=== PATIENT | male | born 1955 | race Caucasian/White ===

== ENCOUNTER 2018-01-08 22:21 | Emergency (ER) | payer OTHER ==
[~2018-01-08] VITALS: Ht 177.8 cm; Wt 93.3 kg
[2018-01-08 22:27] VITALS: TEMP 36.5; Ht 177.8 cm; Wt 93.3 kg
[2018-01-08] MEDS ORDERED: HYDROmorphone INJ 1 MG/ML SYR IV STA ×2 (22:39→23:47)
[2018-01-08] MEDS ORDERED: ONDANSETRON INJ 2 MG/ML 2 ML VIAL IV STA (22:39)
[2018-01-08] MEDS ORDERED: SODIUM CHLORIDE 0.9% 1000ML 1,000 ML IV ONE (22:45)
[2018-01-08] MEDS ORDERED: OPTIRAY 320 IV PRN (23:00)
[2018-01-08 23:07] LABS: BASO % 0.4 %; BASO ABS # 0.04 K/uL (0-0.2); EOS % 0.2 %; EOS ABS # 0.02 K/uL (0-0.5); HEMATOCRIT 43.9 % (42-52); HEMOGLOBIN 15.1 g/dL (14.0-18.0); IG# 0.03 K/uL (0.00-0.02); LYMPH % 14.4 %; LYMPH ABS # 1.53 K/uL (1.2-3.4); MEAN CELL VOLUME 90.5 fL (80-100); MEAN CORPUSCULAR HEMOGLOBIN 31.1 pg (25-34); MEAN CORPUSCULAR HGB CONC 34.4 g/dl (32-36); MEAN PLATELET VOLUME 9.8 fL (7.4-10.4); MONO % 7.5 %; NEUT % 77.2 %; PLATELET COUNT 203 K/uL (130-400); RED CELL DISTRIBUTION WIDTH CV 13.2 % (11.5-14.5); RED CELL DISTRIBUTION WIDTH SD 43.3 fL (36.4-46.3); WHITE BLOOD COUNT 10.62 K/uL (4.8-10.8)
[2018-01-08] MEDS ORDERED: PATIENT'S ALLERGY INFO NEEDS ENTERED STA (23:16)
[2018-01-08 23:28] LABS: ALBUMIN 3.6 gm/dl (3.4-5.0); CALCIUM 8.6 mg/dl (8.5-10.1); CREATININE 1.27 mg/dl (0.60-1.40); TOTAL PROTEIN 7.5 gm/dl (6.4-8.2)
[2018-01-09] MEDS ORDERED: ASPI81TA28 PO ×2 (00:01)
[2018-01-09] MEDS ORDERED: MULT-506 PO ×2 (00:01)
[2018-01-09] MEDS ORDERED: KETOROLAC TROMETHAMINE 30 MG/ML VIAL IV STA (02:14)
[2018-01-09] MEDS ORDERED: ONDA4TAB10 SL ×2 (02:33)
[2018-01-09] MEDS ORDERED: OXYC1TAB3 PO ×2 (02:33)
[2018-01-09] MEDS ORDERED: TAMS0.4C38 PO ×2 (02:33)
[2018-01-09 02:34] VITALS: BP 141/64; PULSE 65; O2SAT 98
[2018-01-09] MEDS ORDERED: OXYCODONE IR HOME PACK PO ONE (02:45)
[2018-01-09] MEDS ORDERED: ONDANSETRON HOME PACK 4MG OD TAB PO ONE (02:45)
--- NOTE | 2018-01-09 08:26 | DIAGNOSTIC IMAGING REPORT ---
CT SCAN OF THE ABDOMEN AND PELVIS WITH IV CONTRAST CLINICAL HISTORY: Left lower quadrant abdominal pain. COMPARISON STUDY: Abdominal radiograph dated 01/08/2018. TECHNIQUE: Following the IV administration of 95 cc of Optiray 320, CT scan of the abdomen and pelvis is performed from the lung bases to the proximal femora. Images are reviewed in the axial, sagittal, and coronal planes. IV contrast was administered without complication. A dose lowering technique was utilized adhering to the principles of ALARA. CT DOSE: 673.92 mGy.cm FINDINGS: Lung bases: The heart is top normal in size and without pericardial effusion. There is minimal linear left lower lobe pulmonary nodule seen image #61. The long bases are otherwise clear noting dependent atelectasis. There is a tiny fat-containing umbilical hernia. Liver: The contrast-enhanced liver is normal in size, contour, and attenuation. There is no intrahepatic biliary ductal dilatation. The hepatic veins and portal veins are patent. Gallbladder: There are small calcified gallstones. There is no CT evidence of acute cholecystitis. Spleen: Normal in size and attenuation. Pancreas: Unremarkable. Adrenal glands: Unremarkable. Kidneys: The contrast enhanced kidneys are normal in size. There is a 10 mm obstructing calculus in the left proximal ureter just below the vesicoureteral junction seen on image #218a. This is seen at the level of L2-L3 and causes moderate left hydroureteronephrosis. There is heterogeneously diminished perfusion of the left kidney as compared to the right, likely related to obstruction. There is associated left-sided perinephric stranding. The right kidney enhances homogeneously. Additional tiny nonobstructing calculi are present in both kidneys. There is no right-sided hydronephrosis. Bilateral renal cysts measure up to 4.3 cm. A 2.4 cm hypodensity in the interpolar left kidney on image #[address] criteria for simple cyst. Abdominal vasculature: The abdominal aorta is normal in course and caliber noting mild to moderate atherosclerotic calcification. Bowel: There is mild colonic diverticulosis without CT evidence of acute diverticulitis. Colonic fecal retention is observed. No bowel obstruction is seen. The appendix is is well-visualized and normal. Peritoneum: There is no intraperitoneal free air or abdominal ascites. There is a small fat-containing umbilical hernia. Lymphadenopathy: None. Pelvic viscera: The bladder, prostate, and seminal vesicles are normal as imaged. Skeletal structures: There are bilateral pars defects at L5. There is minimal anterolisthesis and advanced disc space narrowing at L5-S1. No lytic or blastic lesions are seen. IMPRESSION: 1. There is a 10 mm obstructing calculus in the proximal left ureter. This causes moderate left hydroureteronephrosis. 2. Additional small nonobstructing calculi are seen bilaterally. 3. There is heterogeneously diminished perfusion of the left kidney as compared to the right. This is likely related to obstruction. Correlate clinically and with urinalysis for evidence of superimposed infection. 4. There is an 8 mm left lower lobe pulmonary nodule. This is pathologically indeterminant and follow-up with a dedicated chest CT is recommended for further assessment of the thorax. 5. Cholelithiasis. 6. Mild colonic diverticulosis without CT evidence of acute diverticulitis. 7. There are bilateral renal cysts. A 2.4 cm lesion in the interpolar left kidney does not meet CT criteria for simple cyst. This likely represents a complex cyst. Precautionary 6 month follow-up with a renal protocol CT or contrast-enhanced MRI is recommended for reassessment. 8. Additional findings as above. Electronically signed by: Benji Garcia M.D. 01/09/2018 8:24 AM Dictated Date/Time: 01/09/2018 8:15 AM
--- NOTE | 2018-01-09 08:27 | DIAGNOSTIC IMAGING REPORT ---
CHEST AND ABDOMEN 2 VIEWS HISTORY: Left lower quadrant abdominal pain. COMPARISON: None. FINDINGS: The lungs are clear. The heart is normal in size. No pleural effusions. No pneumothorax. Moderate to large amount well-formed stool seen throughout the colon. No evidence for bowel obstruction. There is a 7 mm stone at the left ureteropelvic junction. Multiple pelvic phleboliths. There is a punctate stone within the lower pole the right kidney. IMPRESSION: 1. A 7 mm left ureteropelvic junction stone. 2. Right-sided nephrolithiasis. Electronically signed by: Eder Rodriguez M.D. 01/09/2018 8:26 AM Dictated Date/Time: 01/09/2018 8:22 AM
--- NOTE | 2018-01-10 02:51 | EMERGENCY ROOM VISIT NOTE ---
History First contact with patient: 22:33 Chief Complaint: ABDOMINAL PAIN Stated Complaint: LLQ PAIN,NAUSEA Nursing Triage Summary: pt reports started with abdominal pain approx 1600 today , + nausea History of Present Illness The patient is a 62 year old male who presents to the Emergency Room with complaints of left lower quadrant abdominal pain that began worsening about 6-1/ 2 hours ago. The patient states that he was doing yard work at the time and thought his symptoms might be musculoskeletal in nature. He stopped what he was doing and his pain continued. He states the pain is a dull and constant 7/ 10. He does have associated nausea without vomiting. He is not having fevers, chills, chest pain, chest tightness, or shortness of breath. No upper abdominal discomfort. He considers himself usually healthy and does not take medication on a regular basis. He has had colonoscopy in the past and states that he had a singular polyp as well as scattered diverticula on colonoscopy. The patient has never had abdominal surgery. He has not taken anything over-the -counter for his discomfort. Review of Systems More than 10 systems were reviewed and otherwise negative with the exception of history of present illness. Past Medical/Surgical History No chronic medical disease Family History No pertinent family history Social History Smoking Status: Never Smoker Housing Status: lives with family Occupation Status: employed Current/Historical Medications Scheduled Aspirin (Aspirin Ec), 81 MG PO DAILY Multivitamin (Multivitamin), 1 TAB PO DAILY Ondasetron Odt (Zofran Odt), 4 MG SL Q6H Oxycodone Immediate Rel Tab (Roxicodone Ir), 1-2 TAB PO Q4H Tamsulosin Hcl (Flomax), 0.4 MG PO DAILY Physical Exam Vital Signs Date Time Temp Pulse Resp B/P (MAP) Pulse Ox O2 Delivery O2 Flow Rate FiO2 01/09/18 02:34 65 20 141/64 98 Room Air 01/09/18 01:25 74 20 116/68 98 Room Air 01/08/18 23:56 77 18 111/65 96 Room Air 01/08/18 22:27 36.5 70 18 119/70 96 Room Air Physical Exam VITALS: Vitals are noted on the nurse's note and reviewed by myself. Vital signs stable. GENERAL: Well-developed, well-nourished, white male who appears mildly uncomfortable on examination. HEART: Regular rate and rhythm without murmurs gallops or rubs. LUNGS: Clear to auscultation bilaterally without wheezes, rales or rhonchi. No retractions or accessory muscle use. ABDOMEN: Positive normal bowel sounds x 4. Soft, nontender, without masses or organomegaly. No guarding or rebound tenderness. No CVA tenderness. MUSCULOSKELETAL: No muscle atrophy, erythema, or edema noted. Full range of motion in all extremities. No tenderness to palpation. Medical Decision & Procedures ER Provider Diagnostic Interpretation: CHEST AND ABDOMEN 2 VIEWS HISTORY: Left lower quadrant abdominal pain. COMPARISON: None. FINDINGS: The lungs are clear. The heart is normal in size. No pleural effusions. No pneumothorax. Moderate to large amount well-formed stool seen throughout the colon. No evidence for bowel obstruction. There is a 7 mm stone at the left ureteropelvic junction. Multiple pelvic phleboliths. There is a punctate stone within the lower pole the right kidney. IMPRESSION: 1. A 7 mm left ureteropelvic junction stone. 2. Right-sided nephrolithiasis. CT SCAN OF THE ABDOMEN AND PELVIS WITH IV CONTRAST CLINICAL HISTORY: Left lower quadrant abdominal pain. COMPARISON STUDY: Abdominal radiograph dated 01/08/2018. TECHNIQUE: Following the IV administration of 95 cc of Optiray 320, CT scan of the abdomen and pelvis is performed from the lung bases to the proximal femora. Images are reviewed in the axial, sagittal, and coronal planes. IV contrast was administered without complication. A dose lowering technique was utilized adhering to the principles of ALARA. CT DOSE: 673.92 mGy.cm FINDINGS: Lung bases: The heart is top normal in size and without pericardial effusion. There is minimal linear left lower lobe pulmonary nodule seen image #61. The long bases are otherwise clear noting dependent atelectasis. There is a tiny fat-containing umbilical hernia. Liver: The contrast-enhanced liver is normal in size, contour, and attenuation. There is no intrahepatic biliary ductal dilatation. The hepatic veins and portal veins are patent. Gallbladder: There are small calcified gallstones. There is no CT evidence of acute cholecystitis. Spleen: Normal in size and attenuation. Pancreas: Unremarkable. Adrenal glands: Unremarkable. Kidneys: The contrast enhanced kidneys are normal in size. There is a 10 mm obstructing calculus in the left proximal ureter just below the vesicoureteral junction seen on image #218a. This is seen at the level of L2-L3 and causes moderate left hydroureteronephrosis. There is heterogeneously diminished perfusion of the left kidney as compared to the right, likely related to obstruction. There is associated left-sided perinephric stranding. The right kidney enhances homogeneously. Additional tiny nonobstructing calculi are present in both kidneys. There is no right-sided hydronephrosis. Bilateral renal cysts measure up to 4.3 cm. A 2.4 cm hypodensity in the interpolar left kidney on image #[address] criteria for simple cyst. Abdominal vasculature: The abdominal aorta is normal in course and caliber noting mild to moderate atherosclerotic calcification. Bowel: There is mild colonic diverticulosis without CT evidence of acute diverticulitis. Colonic fecal retention is observed. No bowel obstruction is seen. The appendix is is well-visualized and normal. Peritoneum: There is no intraperitoneal free air or abdominal ascites. There is a small fat-containing umbilical hernia. Lymphadenopathy: None. Pelvic viscera: The bladder, prostate, and seminal vesicles are normal as imaged. Skeletal structures: There are bilateral pars defects at L5. There is minimal anterolisthesis and advanced disc space narrowing at L5-S1. No lytic or blastic lesions are seen. IMPRESSION: 1. There is a 10 mm obstructing calculus in the proximal left ureter. This causes moderate left hydroureteronephrosis. 2. Additional small nonobstructing calculi are seen bilaterally. 3. There is heterogeneously diminished perfusion of the left kidney as compared to the right. This is likely related to obstruction. Correlate clinically and with urinalysis for evidence of superimposed infection. 4. There is an 8 mm left lower lobe pulmonary nodule. This is pathologically indeterminant and follow-up with a dedicated chest CT is recommended for further assessment of the thorax. 5. Cholelithiasis. 6. Mild colonic diverticulosis without CT evidence of acute diverticulitis. 7. There are bilateral renal cysts. A 2.4 cm lesion in the interpolar left kidney does not meet CT criteria for simple cyst. This likely represents a complex cyst. Precautionary 6 month follow-up with a renal protocol CT or contrast-enhanced MRI is recommended for reassessment. 8. Additional findings as above. Laboratory Results 01/08/18 22:52 Red Blood Count 4.85, Mean Corpuscular Volume 90.5, Mean Corpuscular Hemoglobin 31.1, Mean Corpuscular Hemoglobin Concent 34.4, Mean Platelet Volume 9.8, Neutrophils (%) (Auto) 77.2, Lymphocytes (%) (Auto) 14.4, Monocytes (%) (Auto) 7.5, Eosinophils (%) (Auto) 0.2, Basophils (%) (Auto) 0.4, Neutrophils # (Auto) 8.20, Lymphocytes # (Auto) 1.53, Monocytes # (Auto) 0.80, Eosinophils # (Auto) 0.02, Basophils # (Auto) 0.04 01/08/18 22:52 Test 01/08/18 22:52 01/08/18 22:58 White Blood Count 10.62 K/uL (4.8-10.8) Red Blood Count 4.85 M/uL (4.7-6.1) Hemoglobin 15.1 g/dL (14.0-18.0) Hematocrit 43.9 % (42-52) Mean Corpuscular Volume 90.5 fL (80-100) Mean Corpuscular Hemoglobin 31.1 pg (25-34) Mean Corpuscular Hemoglobin Concent 34.4 g/dl (32-36) Platelet Count 203 K/uL (130-400) Mean Platelet Volume 9.8 fL (7.4-10.4) Neutrophils (%) (Auto) 77.2 % Lymphocytes (%) (Auto) 14.4 % Monocytes (%) (Auto) 7.5 % Eosinophils (%) (Auto) 0.2 % Basophils (%) (Auto) 0.4 % Neutrophils # (Auto) 8.20 K/uL (1.4-6.5) Lymphocytes # (Auto) 1.53 K/uL (1.2-3.4) Monocytes # (Auto) 0.80 K/uL (0.11-0.59) Eosinophils # (Auto) 0.02 K/uL (0-0.5) Basophils # (Auto) 0.04 K/uL (0-0.2) RDW Standard Deviation 43.3 fL (36.4-46.3) RDW Coefficient of Variation 13.2 % (11.5-14.5) Immature Granulocyte % (Auto) 0.3 % Immature Granulocyte # (Auto) 0.03 K/uL (0.00-0.02) Urine Color YELLOW Urine Appearance CLEAR (CLEAR) Urine pH 5.0 (4.5-7.5) Urine Specific [place] 1.026 (1.000-1.030) Urine Protein NEG (NEG) Urine Glucose (UA) NEG (NEG) Urine Ketones TRACE (NEG) Urine Occult Blood 2+ (NEG) Urine Nitrite NEG (NEG) Urine Bilirubin NEG (NEG) Urine Urobilinogen NEG (NEG) Urine Leukocyte Esterase NEG (NEG) Urine WBC (Auto) 1-5 /hpf (0-5) Urine RBC (Auto) >30 /hpf (0-4) Urine Hyaline Casts (Auto) 1-5 /lpf (0-5) Urine Epithelial Cells (Auto) 0-5 /lpf (0-5) Urine Bacteria (Auto) NEG (NEG) Anion Gap 7.0 mmol/L (3-11) Est Creatinine Clear Calc Drug Dose 69.2 ml/min Estimated GFR () 69.7 Estimated GFR (Non- 60.2 BUN/Creatinine Ratio 16.7 (10-20) Calcium Level 8.6 mg/dl (8.5-10.1) Total Bilirubin 1.1 mg/dl (0.2-1) Aspartate Amino Transf (AST/SGOT) 16 U/L (15-37) Alanine Aminotransferase (ALT/SGPT) 23 U/L (12-78) Alkaline Phosphatase 68 U/L (45-117) Total Protein 7.5 gm/dl (6.4-8.2) Albumin 3.6 gm/dl (3.4-5.0) Globulin 3.9 gm/dl (2.5-4.0) Albumin/Globulin Ratio 0.9 (0.9-2) Lipase 101 U/L (73-393) Bedside Lactic Acid Venous 1.55 mmol/L (0.90-1.70) Medications Administered Medications (Trade) Dose Ordered Sig/Jimena Route Start Time Stop Time Status Last Admin Dose Admin Sodium Chloride 1,000 ml @ 999 mls/hr Q1H1M ONCE IV 01/08/18 22:45 01/08/18 23:45 DC 01/08/18 23:06 999 MLS/HR Ondansetron HCl (Zofran Inj) 4 mg NOW STAT IV 01/08/18 22:39 5/20/18 22:42 DC 01/08/18 23:05 4 MG Hydromorphone HCl (Dilaudid Inj) 1 mg NOW STAT IV 01/08/18 22:39 01/08/18 22:42 DC 01/08/18 23:06 1 MG Miscellaneous Information (Patient'S Allergy Info Needs Entered) 1 ea NOW STAT N/A 01/08/18 23:16 01/08/18 23:17 DC 01/08/18 23:16 1 EA Hydromorphone HCl (Dilaudid Inj) 1 mg NOW STAT IV 01/08/18 23:47 01/08/18 23:48 DC 01/08/18 23:56 1 MG Ketorolac Tromethamine (Toradol Inj) 30 mg NOW STAT IV 01/09/18 02:14 01/09/18 02:15 DC 01/09/18 02:35 30 MG Oxycodone HCl (Roxicodone Immediate Rel 5MG Home Pack) 1 homepack UD ONCE PO 01/09/18 02:45 01/09/18 02:46 DC 01/09/18 02:43 1 HOMEPACK Ondansetron HCl (ZOFRAN ODT 4MG Home Pack) 1 homepack UD ONCE PO 01/09/18 02:45 01/09/18 02:46 DC 01/09/18 02:43 1 HOMEPACK ED Course Physical exam and history were performed. Nursing notes, EMR, and Medication List were personally reviewed. Patient appears to have left-sided abdominal pain for the past several hours. He is quite uncomfortable on examination. IV access was established and labs were obtained. The patient was hydrated with normal saline and given IV Dilaudid for pain control. Chest and abdominal series x-rays were performed and reviewed by myself and my attending showing no obstructive process. There is possible stone on plain films, and considering the patient has a history of diverticulosis a CT scan with contrast was performed. The patient's blood work is as above and was reviewed. He does not have a significantly elevated white blood cell count, gross anemia, bandemia, or significant electrolyte imbalance. Lipase and transaminases are not diagnostic. CT scan does reveal a large ureteral calculi which is felt to be the likely cause of the patient's symptoms. I had a lengthy discussion with the patient regarding his findings, and explained that based on the size of the stone he would likely need urologic intervention to pass the stone. The patient was offered admission to the facility, however he voiced a preference for discharge home. The patient will be given a urine strainer and a course of pain medication, Flomax, and nausea medication. He needs to contact urology first thing in the morning when the office opens. He understands the importance of returning to the ER with any new , worsening, or concerning symptoms. He was discharged home in the care of his who is acting as a goat driver today. The chart was completed utilizing [employer] Speech Voice Recognition Software. Grammatical errors, random word insertions, pronoun errors, and incomplete sentences are an occasional consequence of this system due to software limitations, ambient noise, and hardware issues. Any formal questions or concerns about the content, text, or information contained within the body of this dictation should be directly addressed to the provider for clarification. . Medical Decision Differential diagnosis: Etiologies such as renal colic, appendicitis, diverticulitis, mesenteric ischemia, aortic pathology, infections, inflammatory bowel disease, PUD, biliary pathology, UTI, as well as others were entertained. Impression Primary Impression: Left ureteral stone Departure Information Dispostion Home / Self-Care Condition GOOD Prescriptions Ondasetron Odt (ZOFRAN ODT) 4 Mg Tab 4 MG SL Q6H for Nausea, #20 TAB Prov: Tyrone Morejon PA-C 01/09/18 Tamsulosin Hcl (FLOMAX) 0.4 Mg Cap 0.4 MG PO DAILY for 7 Days, #7 CAP Prov: Tyrone Morejon PA-C 01/09/18 Oxycodone Immediate Rel Tab (ROXICODONE IR) 5 Mg Tab 1-2 TAB PO Q4H for Pain, #24 TAB Prov: Tyrone Morejon PA-C 01/09/18 Referrals Kelly Butterfield MD Forms Call Back Authorization, HOME CARE DOCUMENTATION FORM, IMPORTANT VISIT INFORMATION Patient Instructions My [facility] Additional Instructions You were seen and evaluated today on an emergency basis only. This is not a substitute for, or an effort to provide, complete comprehensive medical care. It is not possible to recognize and treat all injuries or illnesses in a single emergency department visit. For this reason it is recommended that you followup with Urology by telephone in the morning to arrange appropriate follow-up. Strain your urine. For baseline pain relief you may alternate ibuprofen and acetaminophen every 4 hours for pain control. Take 600 mg ibuprofen (Advil) and then 4 hours later take 1000 mg acetaminophen (Tylenol). Do not take more than 3000 mg acetaminophen in a single day. Oxycodone (OxyIR) 5mg: Take ONE or TWO pills every FOUR to SIX hours for breakthrough pain. Avoid alcohol, operating machinery or dangerous equipment, working on ladders or roofs, DRIVING, or situations where being under the influence may be dangerous. It is recommended to use an [id number]-yaleebf stool softener such as Colace, 100mg twice daily while taking this medication to avoid constipation. Take Flomax once daily Zofran 4 mg ODT: Dissolve 1 tablet every 6 hrs as needed for nausea. You are welcome to return to the emergency department anytime with new, worsening, or concerning symptoms.
== END 2018-01-09 02:48 | disposition home or self-care (01) ==
LOC: C.EDB 22:22 → C.EDC 01-09 02:48
DX: N20.2 Calculus of kidney with calculus of ureter (principal); K80.20 Calculus of gallbladder without cholecystitis without obstruction; N28.1 Cyst of kidney, acquired; R10.32 Left lower quadrant pain; K57.90 Diverticulosis of intestine, part unspecified, without perforation or abscess without bleeding; R91.1 Solitary pulmonary nodule

== ENCOUNTER → 2018-01-10 | Day surgery (SDC) | payer OTHER ==
[~2018-01-10] VITALS: Ht 177.8 cm; Wt 95.5 kg
[~2018-01-10] MED LIST: ACETAMINOPHEN 1000 MG/100 ML IV IV PRN; ASPI81TA28 PO; ATROPINE SULFATE 0.1 MG/ML 5ML SYR IV PRN; BELLADONNA/OPIUM SUPP 60 MG SUPP PR ONE; CEFAZOLIN 2000MG IV PUSH 15 ML IV SCH; CEFAZOLIN SOD 2000MG/15 ML IV PUSH ONE; CHECK SCOPOLAMINE PATCH PLACEMENT SCH; Cysto-Conray II 17.2% 250ML BOTTLE ONE; DEXAMETHASONE SOD INJ 4 MG/ML VIAL ONE; EpHEDrine SULFATE 50MG/5ML SYR ONE; EpHEDrine SULFATE INJ 50 MG/ML AMP IV PRN; FENTANYL CITRATE INJ 50 MCG/1 ML 2 ML VIAL IV PRN; FENTANYL CITRATE INJ 50 MCG/1 ML 2 ML VIAL ONE; KETOROLAC TROMETHAMINE 30 MG/ML VIAL ONE; LACTATED RINGER'S 1000ML 1,000 ML IV SCH; LIDOCAINE HCL 2% 2 ML VIAL (20MG/ML) ONE; MIDAZOLAM HCL 1 MG/ML 2ML VIAL ONE; MULT-506 PO; NURSING VERBAL MED ORDER ONE; ONDA4TAB10 SL; ONDANSETRON INJ 2 MG/ML 2 ML VIAL IV PRN; ONDANSETRON INJ 2 MG/ML 2 ML VIAL ONE; OXYC1TAB3 PO; PHENYLEPHRINE 100MCG/ML 5ML SYR ONE; PROPOFOL IV EMULSION 10 MG/ML 20 ML VIAL ONE; ROCURONIUM BROMIDE 10 MG/ML 5 ML VIAL ONE; SCOPOLAMINE 1.5 MG TDSY TD ONE; SCOPOLAMINE 1.5 MG TDSY TD SCH; SUCCINYLCHOLINE CHLORIDE 20 MG/ML 10 ML VIAL IV ONE; TAMS0.4C38 PO
[2018-01-10 16:10] VITALS: BP 142/85; PULSE 71; TEMP 36.6; O2SAT 95; Ht 177.8 cm; Wt 95.5 kg
--- NOTE | 2018-01-10 18:53 | [facility] Operative Report ---
Operative Report Operative Date January 10, 2018. Pre-Operative Diagnosis left ureteral stone Post-Operative Diagnosis left ureteral stone Procedure(s) Performed Left Cystoscopy, Left Ureteroscopy, Laser Lithotripsy, Basket Stone Extraction, Stent Placement Surgeon DR. Kelly Butterfield Spool Winder Surgeon(s) none Estimated Blood Loss 2ml Findings radio-opaque left upper ureteral stone Fluids 1400mL Specimens A: Left Ureteral stone fragments Drains left 6 fr 24 centiemter double j stent Anesthesia Type General Complication(s) none Disposition yes Recovery Room / PACU Indications large obstructing left upper ureteral stone , continued pain and nausea Description of Procedure Patient was given GET general anesthesia and placed in lithotomy position. His genitals were prepped and draped in sterile fashion. Time out held with team. I placed a 21 fr rigid cystoscope to bladder. The urethra is unremarkable. The prostate is medium with high bladder neck. I had to use a 70 degree lens to see UOs. The UOs are small round shape. I placed a road runner wire up left ureter and went past the left upper ureteral stone with a little manipulation. I could not pass a [address] runner as ureter was too tight at the stone. Stone is brightly radio-opaque. I used a dual lumen to pass a stiff wire. the dual lumen will not pass the intramural tunnel of the ureter but gets in enough to pass the second wire which also goes to the kidney easily. I tried the dual lumen over the stiff wire and it will not enter the left ureter. The UO and tunnel are tight. I next passed the inner obturator of the 12/14 28 centimeter ureteral access sheath over the stiff wire and it calibrated the left distal uo. I then was able to pass the fully assembled 12/ 14 fr 28 centimeter ureteral access sheath over the road runner into the distal ureter. I then passed the flexible ureteroscope up the left ureter to the stone. The entire ureter is small caliber, not much larger than the scope. I used a 200 micron holmium laser fiber to dust the stone into very small pieces. Most rinsed up into the kidney. I used a 2.4 fr zero tip basket to remove about a dozen stones. They are all very small. I do not see any large or medium pieces in kidney visually or by fluoro. I removed scope and sheath. I placed a 24 centimeter 6 Fr double J stent easily. There is brisk efflux after placement. I left bladder empty and concluded case. I placed a belladonna and opium suppository for post-op pain. He transferred to recovery under my escort, in stable condition. Plan: Home today Pyridium for dysuria x 3 days flomax daily oral pain meds as needed stent removal end of next week. KUB prior to stent removal. 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 Any exceptions are noted below.
--- NOTE | 2018-01-10 18:56 | Discharge Instructions ---
Discharge Instructions Date of Service January 10, 2018. Admission Reason for Admission: Left ureteral Stone Discharge Discharge Diagnosis / Problem: left ureteral stone Discharge Goals Goal(s): Decrease discomfort, Improve disease control Activity Recommendations Activity Limitations: resume your previous activity Lifting Limitations: none Exercise/Sports Limitations: as tolerated May Resume Sexual Activity: when tolerated Shower/Bathe: no limitations Driving or Machine Use: resume 1 day after discharge . Instructions / Follow-Up Instructions / Follow-Up urine will be bloody for days you will have pain at both left kidney and at bladder take ibuprofen 600mg every 8 hours with food for 2-3 days take flomax daily until stent out next week take narcotic every 4-6 hours for severe pain next 2-[address] while taking narcotic use stool softener and or laxative daily for next 5 days will need an x-ray next tuesday prior to stent removal Purvi King Current Hospital Diet Patient's current hospital diet: Discharge Diet Recommended Diet: Regular Diet Fluid Restriction: None Procedures Procedures Performed: Left Cystoscopy, Left Ureteroscopy, Laser Lithotripsy, Basket Stone Extraction, Stent Placement Pending Studies Studies pending at discharge: no Medical Emergencies . Who to Call and When: Medical Emergencies: If at any time you feel your situation is an emergency, please call 911 immediately. . Non-Emergent Contact Non-Emergency issues call your: Urologist ([phone]) Call Non-Emergent contact if: temperature is above 100.5, your pain is not controlled . . "Provider Documentation" section prepared by Kelly Butterfield. .
--- NOTE | 2018-01-10 19:10 | Anesthesiology Progress Note ---
Anesthesia Post Op Note Date & Time January 10, 2018 at 19:10 Vital Signs Pain Intensity: 0 Vital Signs Past 12 Hours Date Time Temp Pulse Resp B/P (MAP) Pulse Ox O2 Delivery O2 Flow Rate FiO2 01/10/18 19:00 62 20 102/58 100 Oxymask 10 01/10/18 18:50 36.8 66 13 121/68 98 Oxymask 10 01/10/18 16:10 36.6 71 18 142/85 (104) 95 Room Air Notes Mental Status: alert / awake / arousable, participated in evaluation Pt Amnestic to Procedure: Yes Nausea / Vomiting: adequately controlled Pain: adequately controlled Airway Patency, RR, SpO2: stable & adequate BP & HR: stable & adequate Hydration State: stable & adequate Anesthetic Complications: no major complications apparent
[2018-01-10 19:34] VITALS: BP 127/68; PULSE 70; TEMP 36.6; O2SAT 95
[2018-01-10 19:55] VITALS: BP 155/74; PULSE 65; TEMP 36.6; O2SAT 93
--- NOTE | 2018-01-10 20:24 | DIAGNOSTIC IMAGING REPORT ---
RETROGRADE INCLUDES KUB CLINICAL HISTORY: 62 years-old Male presenting with CYSTO. TECHNIQUE: 4 fluoroscopic image(s) recorded as part of an intraoperative procedure. COMPARISON: CT from 01/09/2018. FINDINGS/IMPRESSION: Oral contrast is noted in the large bowel. A catheter was introduced over guidewire into the left renal collecting system. A left ureteral stent was placed. Please see surgical report for further details. Fluoroscopy dosage (mGy): Not available. Fluoroscopy time: 1 minute 45 seconds. Number of fluoroscopic spot images: 0. Electronically signed by: Robert Toussaint M.D. 01/10/2018 8:22 PM Dictated Date/Time: 01/10/2018 8:21 PM
[2018-01-10 20:28] VITALS: BP 144/65; PULSE 68; TEMP 36.6; O2SAT 94
== END | disposition home or self-care (01) ==
LOC: C.ACU 15:39
PROVIDERS: ATTEND Urology
DX: N20.1 Calculus of ureter (principal); I34.0 Nonrheumatic mitral (valve) insufficiency; Z79.82 Long term (current) use of aspirin; Z86.718 Personal history of other venous thrombosis and embolism; Z87.442 Personal history of urinary calculi